=== PATIENT | male | born 1980 | race Two or more races ===

== ENCOUNTER 2023-04-28 18:11 | Emergency (ER) | payer MEDICAID ==
[~2023-04-28] VITALS: Ht 160 cm; Wt 59.0 kg
[2023-04-28] MEDS ORDERED: IV NS 0.9% 500 ML BAG IV ONE (18:30)
[2023-04-28 19:12] LABS: EOSINOPHILS # (AUTO) 0.1 K/uL (0.0-0.7); EOSINOPHILS % (AUTO) 1.9 % (0.0-6.0); MONOCYTES # (AUTO) 0.7 K/uL (0.1-1.30)
[2023-04-28 19:17] LABS: BASOPHILS % (AUTO) 0.3 % (0.0-2.0); HEMATOCRIT 23 % (39-51); LYMPHOCYTES # (AUTO) 0.7 K/uL (0.8-4.8); LYMPHOCYTES % (AUTO) 9.4 % (20.0-44.0); MEAN CORPUSCULAR HEMOGLOBIN 27 PG (26.0-33.0); MEAN CORPUSCULAR HGB CONC 32 g/dl (31.0-36.0); MEAN CORPUSCULAR VOLUME 85 fL (80-96); MONOCYTES % (AUTO) 10.1 % (2.0-12.0); NEUTROPHILS # (AUTO) 5.5 K/uL (1.8-8.9); NEUTROPHILS % (AUTO) 78.3 % (43.0-81.0); PLATELET COUNT (AUTO) 118 K/uL (150-450); RED BLOOD CELL COUNT(AUTO) 2.75 MIL/uL (4.5-6.0); RED CELL DISTRIBUTION WIDTH 14.5 % (11.5-15.0)
[2023-04-28 19:25] LABS: HEMOGLOBIN 7.4 g/dL (13.5-17.5)
[2023-04-28 19:26] LABS: CALCIUM, SERUM 7.5 mg/dL (8.5-10.1); CREATININE 3.5 mg/dL (0.6-1.3); POTASSIUM 3.5 mmol/L (3.5-5.1)
[2023-04-28 20:25] VITALS: BP 109/69; TEMP 98.3; O2SAT 98
== END 2023-04-28 20:26 | disposition home or self-care (01) ==
LOC: ER 18:13
DX: I95.9 Hypotension, unspecified (principal); D63.1 Anemia in chronic kidney disease; I12.0 Hypertensive chronic kidney disease with stage 5 chronic kidney disease or end stage renal disease; N18.6 End stage renal disease; Z99.2 Dependence on renal dialysis
CPT/HCPCS: 99285; 71045; 93005; 85025; 80048; 36415; J7040

== ENCOUNTER 2023-04-29 20:30 | Inpatient (IN) | payer MEDICAID ==
[~2023-04-29] VITALS: Ht 160 cm; Wt 64.9 kg
[2023-04-29 21:13] LABS: BASOPHILS # (AUTO) 0.1 K/uL (0.0-0.2); BASOPHILS % (AUTO) 1.4 % (0.0-2.0); EOSINOPHILS # (AUTO) 0.1 K/uL (0.0-0.7); EOSINOPHILS % (AUTO) 1.3 % (0.0-6.0); HEMATOCRIT 22 % (39-51); LYMPHOCYTES # (AUTO) 0.6 K/uL (0.8-4.8); LYMPHOCYTES % (AUTO) 8.1 % (20.0-44.0); MEAN CORPUSCULAR HEMOGLOBIN 27 PG (26.0-33.0); MEAN CORPUSCULAR HGB CONC 31 g/dl (31.0-36.0); MEAN CORPUSCULAR VOLUME 85 fL (80-96); MONOCYTES # (AUTO) 0.5 K/uL (0.1-1.30); MONOCYTES % (AUTO) 7.7 % (2.0-12.0); NEUTROPHILS # (AUTO) 5.7 K/uL (1.8-8.9); NEUTROPHILS % (AUTO) 81.5 % (43.0-81.0); PLATELET COUNT (AUTO) 137 K/uL (150-450); RED BLOOD CELL COUNT(AUTO) 2.61 MIL/uL (4.5-6.0)
[2023-04-29 21:25] LABS: CALCIUM, SERUM 7.3 mg/dL (8.5-10.1); CARBON DIOXIDE 29 mmol/L (21-32); CHLORIDE 101 mmol/L (98-107); GLUCOSE 122 mg/dL (74-106); POTASSIUM 4.6 mmol/L (3.5-5.1); SODIUM SERUM 137 mmol/L (136-145); UREA NITROGEN, BLOOD 37 mg/dL (7-18)
[2023-04-29 21:42] LABS: ANISOCYTOSIS 1+; EOSINOPHILS % (MANUAL) 1 % (0-4); LYMPHOCYTES % (MANUAL) 15 % (16-48); MONOCYTES % (MANUAL) 8 % (0-11.0); NEUTROPHILS % (MANUAL) 76 (42-76); PLATELET ESTIMATE DECREASED; ROULEAUX 1+
[2023-04-29] MEDS ORDERED: ONDANSETRON HCL/PF 4 MG/2 ML VIAL IVP PRN (22:00)
[2023-04-29] MEDS ORDERED: ACETAMINOPHEN 325 MG TABLET PO PRN (22:00)
[2023-04-29] MEDS ORDERED: MORPHINE SULFATE INJ 2 MG/ML DISP.SYRIN IV PRN (22:00)
[2023-04-29 22:01] LABS: INR 1.02 (0.91-1.10); PROTHROMBIN TIME 10.7 SECS (9.2-11.1)
[2023-04-29 22:15] LABS: ALBUMIN 2.2 g/dL (3.4-5.0); BILIRUBIN,DIRECT 0.1 mg/dL (0.0-0.2); BILIRUBIN,TOTAL 0.3 mg/dL (0.2-1.0); TOTAL PROTEIN, SERUM 6.1 g/dL (6.4-8.2)
[2023-04-29] MEDS: MIDODRINE HCL (5MG) 5 MG TABLET PO SCH (22:21)
[2023-04-29 22:40] VITALS: BP 86/57; TEMP 97.5; O2SAT 98
[2023-04-29] MEDS ORDERED: ALBUMIN 25% 100 ML IV ONE (22:56)
[2023-04-29] MEDS ORDERED: Calcium Gluconate 1GM/10ML 4.65 MEQ in IV NS 0.9% 100 ML IV ONE (23:00)
[2023-04-29] MEDS: ALBUMIN 25% 25 GM in PREMIX 1 EA IV SCH (23:04)
[2023-04-29] MEDS ORDERED: Calcium Gluconate 0.465 MEQ/ML VIAL IV ONE (23:21)
[2023-04-30] VITALS (9 sets, daily range): BP systolic 100–192; BP diastolic 65–110; TEMP 97.5–98.6; O2SAT 95–98
[2023-04-30 07:57] LABS: BASOPHILS % (AUTO) 0.6 % (0.0-2.0); EOSINOPHILS # (AUTO) 0.1 K/uL (0.0-0.7); EOSINOPHILS % (AUTO) 2.9 % (0.0-6.0); HEMATOCRIT 27 % (39-51); HEMOGLOBIN 8.4 g/dL (13.5-17.5); LYMPHOCYTES # (AUTO) 0.8 K/uL (0.8-4.8); LYMPHOCYTES % (AUTO) 15.6 % (20.0-44.0); MEAN CORPUSCULAR HEMOGLOBIN 27 PG (26.0-33.0); MEAN CORPUSCULAR HGB CONC 32 g/dl (31.0-36.0); MEAN CORPUSCULAR VOLUME 86 fL (80-96); MONOCYTES # (AUTO) 0.6 K/uL (0.1-1.30); MONOCYTES % (AUTO) 12.5 % (2.0-12.0); NEUTROPHILS # (AUTO) 3.6 K/uL (1.8-8.9); NEUTROPHILS % (AUTO) 68.4 % (43.0-81.0); PLATELET COUNT (AUTO) 143 K/uL (150-450); RED BLOOD CELL COUNT(AUTO) 3.08 MIL/uL (4.5-6.0); RED CELL DISTRIBUTION WIDTH 14.5 % (11.5-15.0); WHITE BLOOD COUNT (AUTO) 5.2 K/uL (4.3-11.0)
[2023-04-30] MEDS ORDERED: PANT40TA2 PO (08:05)
[2023-04-30] MEDS ORDERED: CITR15SO PO (08:05)
[2023-04-30] MEDS ORDERED: LABE200T5 PO (08:05)
[2023-04-30] MEDS ORDERED: NIFE60TA73 PO (08:05)
[2023-04-30 08:26] LABS: ALBUMIN 2.5 g/dL (3.4-5.0); BILIRUBIN,TOTAL 0.4 mg/dL (0.2-1.0); CALCIUM, SERUM 7.7 mg/dL (8.5-10.1); CREATININE 6.6 mg/dL (0.6-1.3); PHOSPHORUS 6.4 mg/dL (2.5-4.9); POTASSIUM 4.3 mmol/L (3.5-5.1); TOTAL PROTEIN, SERUM 6.2 g/dL (6.4-8.2)
[2023-04-30] MEDS: MIDODRINE HCL (5MG) 5 MG TABLET PO SCH ×3 (08:47→17:00)
[2023-04-30] MEDS: ALBUMIN 25% 25 GM in PREMIX 1 EA IV SCH (10:45)
[2023-04-30] MEDS ORDERED: LABETALOL HCL (100MG) 100 MG TABLET PO SCH (13:00)
[2023-04-30] MEDS ORDERED: CITRIC ACID/SODIUM CITRATE (BICITRA)15 ML UDC PO SCH (13:00)
[2023-04-30] MEDS ORDERED: NIFEdipine (10MG) 10 MG CAPSULE PO SCH (13:00)
[2023-04-30] MEDS: CITRIC ACID/SODIUM CITRATE (BICITRA)15 ML UDC PO SCH ×2 (13:23→17:33)
[2023-04-30] MEDS: NIFEDIPINE 60 MG PO SCH (14:00)
[2023-04-30 14:53] LABS: HEMOGLOBIN 8.6 g/dL (13.5-17.5)
[2023-04-30] MEDS: LABETALOL 200 MG PO SCH (17:33)
[2023-04-30] MEDS: hydrALAZINE HCL IV 20 MG VIAL IV PRN (18:41)
[2023-05-01] VITALS: BP 158/85; TEMP 97.4; O2SAT 96
[2023-05-01 04:00] VITALS: BP 174/90; TEMP 97.5; O2SAT 96
[2023-05-01 05:08] LABS: HEPATITIS B SURFACE AB Non Reactive (.)
[2023-05-01] MEDS: hydrALAZINE HCL IV 20 MG VIAL IV PRN (05:24)
[2023-05-01 06:17] LABS: BASOPHILS % (AUTO) 0.6 % (0.0-2.0); EOSINOPHILS # (AUTO) 0.1 K/uL (0.0-0.7); EOSINOPHILS % (AUTO) 0.9 % (0.0-6.0); HEMATOCRIT 28 % (39-51); HEMOGLOBIN 8.9 g/dL (13.5-17.5); LYMPHOCYTES # (AUTO) 0.6 K/uL (0.8-4.8); LYMPHOCYTES % (AUTO) 8.5 % (20.0-44.0); MEAN CORPUSCULAR HEMOGLOBIN 27 PG (26.0-33.0); MEAN CORPUSCULAR HGB CONC 32 g/dl (31.0-36.0); MEAN CORPUSCULAR VOLUME 86 fL (80-96); MONOCYTES # (AUTO) 0.6 K/uL (0.1-1.30); MONOCYTES % (AUTO) 8.8 % (2.0-12.0); NEUTROPHILS # (AUTO) 5.7 K/uL (1.8-8.9); NEUTROPHILS % (AUTO) 81.2 % (43.0-81.0); PLATELET COUNT (AUTO) 123 K/uL (150-450); RED BLOOD CELL COUNT(AUTO) 3.23 MIL/uL (4.5-6.0); RED CELL DISTRIBUTION WIDTH 14.2 % (11.5-15.0)
[2023-05-01 06:48] LABS: CALCIUM, SERUM 7.9 mg/dL (8.5-10.1); CREATININE 5.7 mg/dL (0.6-1.3); MAGNESIUM 1.9 mg/dL (1.8-2.4); PHOSPHORUS 5.7 mg/dL (2.5-4.9); POTASSIUM 4.2 mmol/L (3.5-5.1)
[2023-05-01 08:00] VITALS: BP 138/74; TEMP 98.4; O2SAT 96
[2023-05-01] MEDS ORDERED: PANTOPRAZOLE 40 MG/PACK PACK PO SCH (09:00)
[2023-05-01] MEDS: PANTOPRAZOLE 40 MG TABLET.DR PO SCH (09:04)
[2023-05-01] MEDS: NIFEDIPINE 60 MG PO SCH (09:05)
[2023-05-01] MEDS: CITRIC ACID/SODIUM CITRATE (BICITRA)15 ML UDC PO SCH ×3 (09:05→16:21)
[2023-05-01] MEDS: LABETALOL 200 MG PO SCH (09:05)
[2023-05-01 12:00] VITALS: BP 98/60; TEMP 98.5; O2SAT 96
[2023-05-01] MEDS: MIDODRINE HCL (5MG) 5 MG TABLET PO SCH ×2 (14:17→16:22)
[2023-05-01] MEDS ORDERED: IV NS 0.9% 500 ML IV ONE ×2 (14:30→16:30)
[2023-05-01 16:00] VITALS: BP 82/50; TEMP 98.5; O2SAT 96
[2023-05-01 20:00] VITALS: BP 90/60; TEMP 98.5; O2SAT 95
[2023-05-02] VITALS: BP 88/57; TEMP 98; O2SAT 95
[2023-05-02 04:00] VITALS: BP 102/60; TEMP 98; O2SAT 95
[2023-05-02 06:17] LABS: BASOPHILS % (AUTO) 0.5 % (0.0-2.0); EOSINOPHILS # (AUTO) 0.1 K/uL (0.0-0.7); EOSINOPHILS % (AUTO) 2.2 % (0.0-6.0); HEMATOCRIT 26 % (39-51); HEMOGLOBIN 8.2 g/dL (13.5-17.5); LYMPHOCYTES # (AUTO) 0.7 K/uL (0.8-4.8); LYMPHOCYTES % (AUTO) 13.2 % (20.0-44.0); MEAN CORPUSCULAR HEMOGLOBIN 27 PG (26.0-33.0); MEAN CORPUSCULAR HGB CONC 32 g/dl (31.0-36.0); MEAN CORPUSCULAR VOLUME 86 fL (80-96); MONOCYTES # (AUTO) 0.5 K/uL (0.1-1.30); NEUTROPHILS % (AUTO) 74.1 % (43.0-81.0); PLATELET COUNT (AUTO) 116 K/uL (150-450); RED CELL DISTRIBUTION WIDTH 14.1 % (11.5-15.0); WHITE BLOOD COUNT (AUTO) 5.4 K/uL (4.3-11.0)
[2023-05-02 06:27] LABS: CALCIUM, SERUM 8.1 mg/dL (8.5-10.1); MAGNESIUM 2.4 mg/dL (1.8-2.4); PHOSPHORUS 6.2 mg/dL (2.5-4.9); POTASSIUM 3.9 mmol/L (3.5-5.1)
[2023-05-02 06:44] LABS: CREATININE 7.6 mg/dL (0.6-1.3)
[2023-05-02 08:00] VITALS: BP 120/68; TEMP 98.1; O2SAT 97
[2023-05-02] MEDS: CITRIC ACID/SODIUM CITRATE (BICITRA)15 ML UDC PO SCH ×3 (08:29→17:26)
[2023-05-02] MEDS: PANTOPRAZOLE 40 MG TABLET.DR PO SCH (08:29)
[2023-05-02] MEDS: MIDODRINE HCL (5MG) 5 MG TABLET PO SCH ×3 (08:30→17:00)
[2023-05-02 12:00] VITALS: BP 147/83; TEMP 98.3; O2SAT 96
[2023-05-02 16:00] VITALS: BP 176/91; TEMP 98.2; O2SAT 98
[2023-05-02] MEDS: hydrALAZINE HCL IV 20 MG VIAL IV PRN (17:26)
[2023-05-02 20:00] VITALS: BP 152/86; TEMP 98.4; O2SAT 97
[2023-05-03] VITALS: BP 172/90; TEMP 99; O2SAT 95
[2023-05-03] MEDS: hydrALAZINE HCL IV 20 MG VIAL IV PRN ×2 (00:50→08:31)
[2023-05-03 04:00] VITALS: BP 174/92; TEMP 97.5; O2SAT 99
[2023-05-03 04:54] LABS: APPEARANCE,URINE SLIGHTLY CLOUDY (CLEAR); BILIRUBIN,URINE NEGATIVE (NEGATIVE); BLOOD, URINE 1+ Ery/uL (NEGATIVE); COLOR,URINE YELLOW (YELLOW); KETONES,URINE NEGATIVE (NEGATIVE); LEUKOCYTE ESTERASE ,URINE TRACE (NEGATIVE); NITRITE, URINE NEGATIVE (NEGATIVE); PH,URINE 7.5 (5.0-8.0); PROTEIN,URINE 3+ mg/dl (NEGATIVE); UGLUCOSE 1+ mg/dL (NEGATIVE); UROBILINOGEN,URINE 0.2 EU/dL (0.2)
[2023-05-03 05:00] LABS: ADD URINE CULTURE NO; BACTERIA,URINE Rare /HPF (None Seen); RBC,URINE 0-2 /HPF (0-2); SQUAMOUS EPITHELIAL CELL,UR Few /HPF (None Seen)
[2023-05-03 05:01] LABS: EOSINOPHIL,URINE None Seen
[2023-05-03 05:10] LABS: CREATININE, URINE 48.6 MG/DL (30.0-125.0); URINE TOTAL PROTEIN 5760.9 mg/dL (0-11.9)
[2023-05-03 05:54] LABS: BASOPHILS % (AUTO) 0.4 % (0.0-2.0); EOSINOPHILS # (AUTO) 0.1 K/uL (0.0-0.7); HEMATOCRIT 26 % (39-51); HEMOGLOBIN 8.2 g/dL (13.5-17.5); LYMPHOCYTES # (AUTO) 0.6 K/uL (0.8-4.8); LYMPHOCYTES % (AUTO) 9.5 % (20.0-44.0); MEAN CORPUSCULAR HEMOGLOBIN 27 PG (26.0-33.0); MEAN CORPUSCULAR HGB CONC 32 g/dl (31.0-36.0); MEAN CORPUSCULAR VOLUME 87 fL (80-96); MONOCYTES # (AUTO) 0.6 K/uL (0.1-1.30); MONOCYTES % (AUTO) 9.2 % (2.0-12.0); NEUTROPHILS # (AUTO) 5.1 K/uL (1.8-8.9); NEUTROPHILS % (AUTO) 78.9 % (43.0-81.0); PLATELET COUNT (AUTO) 119 K/uL (150-450); RED CELL DISTRIBUTION WIDTH 14.5 % (11.5-15.0); WHITE BLOOD COUNT (AUTO) 6.4 K/uL (4.3-11.0)
[2023-05-03 06:08] LABS: CALCIUM, SERUM 8.6 mg/dL (8.5-10.1); CREATININE 5.5 mg/dL (0.6-1.3); IRON, SERUM 18 ug/dl (50-175); MAGNESIUM 2.1 mg/dL (1.8-2.4); PHOSPHORUS 4.3 mg/dL (2.5-4.9); POTASSIUM 4.3 mmol/L (3.5-5.1); TOTAL IRON BINDING CAPACITY 126 ug/dl (250-450)
[2023-05-03 08:00] VITALS: BP 176/92; TEMP 98.5; O2SAT 99
[2023-05-03 08:25] LABS: FERRITIN 649 ng/mL (8-388)
[2023-05-03] MEDS: CITRIC ACID/SODIUM CITRATE (BICITRA)15 ML UDC PO SCH ×3 (08:26→17:10)
[2023-05-03] MEDS: MIDODRINE HCL (5MG) 5 MG TABLET PO SCH ×2 (08:28→13:00)
[2023-05-03] MEDS: PANTOPRAZOLE 40 MG TABLET.DR PO SCH (08:29)
[2023-05-03 11:07] LABS: *ANA ANTI-CENTROMERE B AB <0.2 AI (0.0-0.9); *ANA ANTI-DNA(DS) AB, QN 2 IU/mL (0-9); *ANA ANTI-JO-1 <0.2 AI (0.0-0.9); *ANA ANTICHROMATIN ANTIBODY <0.2 AI (0.0-0.9); *ANA RNP ANTIBODIES <0.2 AI (0.0-0.9); *ANA SJOGREN'S ANTI-SS-A <0.2 AI (0.0-0.9); *ANA SJOGREN'S ANTI-SS-B <0.2 AI (0.0-0.9); *ANAANTI-SCLERODERMA-70 AB <0.2 AI (0.0-0.9); *ANASMITH AB <0.2 AI (0.0-0.9)
[2023-05-03 12:00] VITALS: BP 153/87; TEMP 98.7; O2SAT 100
[2023-05-03 16:00] VITALS: BP 171/87; TEMP 98.6; O2SAT 100
[2023-05-03 20:00] VITALS: BP 172/92; TEMP 98.3; O2SAT 98
[2023-05-03] MEDS: LABETALOL HCL (100MG) 100 MG TABLET PO SCH (20:25)
[2023-05-04] VITALS: BP 181/93; TEMP 98.2; O2SAT 100
[2023-05-04] MEDS: hydrALAZINE HCL IV 20 MG VIAL IV PRN (00:09)
[2023-05-04 02:07] LABS: COMPLEMENT C3, SERUM 100 mg/dL (82-167); COMPLEMENT C4, SERUM 36 mg/dL (12-38)
[2023-05-04 03:06] LABS: HEPATITIS B SURFACE AB Non Reactive (.)
[2023-05-04 04:00] VITALS: BP 174/93; TEMP 98.1; O2SAT 100
[2023-05-04 07:07] LABS: BASOPHILS % (AUTO) 0.5 % (0.0-2.0); EOSINOPHILS # (AUTO) 0.2 K/uL (0.0-0.7); EOSINOPHILS % (AUTO) 2.8 % (0.0-6.0); HEMATOCRIT 26 % (39-51); HEMOGLOBIN 8.2 g/dL (13.5-17.5); LYMPHOCYTES # (AUTO) 0.7 K/uL (0.8-4.8); LYMPHOCYTES % (AUTO) 11.1 % (20.0-44.0); MEAN CORPUSCULAR HEMOGLOBIN 27 PG (26.0-33.0); MEAN CORPUSCULAR HGB CONC 32 g/dl (31.0-36.0); MEAN CORPUSCULAR VOLUME 86 fL (80-96); MONOCYTES # (AUTO) 0.6 K/uL (0.1-1.30); MONOCYTES % (AUTO) 8.9 % (2.0-12.0); NEUTROPHILS # (AUTO) 4.8 K/uL (1.8-8.9); NEUTROPHILS % (AUTO) 76.7 % (43.0-81.0); PLATELET COUNT (AUTO) 126 K/uL (150-450); RED BLOOD CELL COUNT(AUTO) 3.02 MIL/uL (4.5-6.0); RED CELL DISTRIBUTION WIDTH 14.4 % (11.5-15.0); WHITE BLOOD COUNT (AUTO) 6.3 K/uL (4.3-11.0)
[2023-05-04 07:35] LABS: CALCIUM, SERUM 8.2 mg/dL (8.5-10.1); CREATININE 7.2 mg/dL (0.6-1.3); MAGNESIUM 2.2 mg/dL (1.8-2.4); PHOSPHORUS 4.7 mg/dL (2.5-4.9); POTASSIUM 4.2 mmol/L (3.5-5.1)
[2023-05-04 08:00] VITALS: BP 164/88; TEMP 98.8; O2SAT 97
[2023-05-04] MEDS: PANTOPRAZOLE 40 MG TABLET.DR PO SCH (08:51)
[2023-05-04] MEDS: CITRIC ACID/SODIUM CITRATE (BICITRA)15 ML UDC PO SCH ×2 (08:53→12:22)
[2023-05-04] MEDS: LABETALOL HCL (100MG) 100 MG TABLET PO SCH (08:55)
[2023-05-04 12:00] VITALS: BP 149/84; TEMP 99; O2SAT 95
== END 2023-05-04 16:19 | disposition home or self-care (01) | DRG 425 ==
LOC: ER 20:35 → TELE1 22:07 → TELE-TD 23:10 → TELE1 04-30 15:07 → TELE-TD 05-01 16:16 → TELE1 05-02 11:22
PROVIDERS: ADMIT Internal Medicine
PROC: 30233N1 Transfusion of Nonautologous Red Blood Cells into Peripheral Vein, Percutaneous Approach (ICD-10-PCS; principal; 2023-04-30)
PROC: 5A1D70Z Performance of Urinary Filtration, Intermittent, Less than 6 Hours Per Day (ICD-10-PCS; 2023-04-30)
DX: E87.8 Other disorders of electrolyte and fluid balance, not elsewhere classified (principal); I21.A1 Myocardial infarction type 2; I12.0 Hypertensive chronic kidney disease with stage 5 chronic kidney disease or end stage renal disease; E44.0 Moderate protein-calorie malnutrition; I95.9 Hypotension, unspecified; E83.51 Hypocalcemia; D63.8 Anemia in other chronic diseases classified elsewhere; E88.09 Other disorders of plasma-protein metabolism, not elsewhere classified; N18.6 End stage renal disease; Z99.2 Dependence on renal dialysis; E11.22 Type 2 diabetes mellitus with diabetic chronic kidney disease; R74.01 Elevation of levels of liver transaminase levels; D50.0 Iron deficiency anemia secondary to blood loss (chronic); N25.0 Renal osteodystrophy; Z68.25 Body mass index [BMI] 25.0-25.9, adult
CPT/HCPCS: 36415; 71045-TC; 76770-TC; 80048-TC; 80053-TC; 80076-TC; 81001; 82570-TC; 82607-TC; 82728-TC; 82962-TC; 83540-TC; 83605-TC; 83735-TC; 84100-TC; 84300-TC; 84484-TC; 85025-TC; 85027-TC; 85652-TC; 85730-TC; 86225; 86235; 86706; 86803; 86850-TC; 87040-TC; 87340; 90935-TC; 93307-TC; 97110-TC; 97112-TC; 97116-TC; 97530-TC; A4216; A4223; G0378; J0360; J0610; J2270; J2405; J7030; J7040; J7050; P9016; P9047